=== PATIENT | male | born 2000 | race Caucasian/White ===

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

== ENCOUNTER 2020-06-27 08:19 | Inpatient (IN) | payer OTHER ==
[2020-06-27] VITALS (13 sets, daily range): BP systolic 131–152; BP diastolic 76–90; PULSE 53–70; TEMP 97.5–98.6
[~2020-06-27] VITALS: Ht 160 cm; Wt 85.5 kg
[~2020-06-27 08:19] MED LIST changes: +CEPHALEXIN500 M1 PO
--- NOTE | 2020-06-27 09:10 | NUR ---
ALERT ORIENTED X 3, VERBALIZED UNDERSTANDING AND SIGNED CONSENT.
--- NOTE | 2020-06-27 11:10 | NUR ---
Patient up from OR. Alert and oriented x 3. Girlfriend at bedside. Right foot in acewrap, CDI. States mild pain at 4/10. Cap refil <3 sec. Post op VSS. Post op fluids infusing per orders. Patient oriented to room. Assessment complete. Denies further needs at this time. Will continue to monitor.
--- NOTE | 2020-06-27 12:21 | NUR ---
First visit from the system administration manager. No needs right now.
--- NOTE | 2020-06-27 13:45 | NUR ---
Left Voicemail for about consulst.
--- NOTE | 2020-06-27 14:19 | NUR ---
Face Painter met with the patient to complete initial intake. The patient lives in [place] with his parents, Danie and Rose. The patient denies DME use and is indepenent with ADLs. The patient receives medications from [facility]. The patient stepped on a nail on his right foot and may need crutches at discharge. The patient plans to return home once able. There are no additional needs at this time.
--- NOTE | 2020-06-27 18:31 | NUR ---
Patient has done well since up from OR. Has requested pain medication for pain/burning to RLE. Medications given per orders. Tolerating diet without complications, girlfriend at bedside. Denies further needs at this time. Will report off to unemployment examiner.
--- NOTE | 2020-06-27 20:10 | NUR ---
Pt. sitting up in bed at this time. Pt. is A&OX3, assessment complete. INT to lt. forearm patent. Pt. denies pain at this time. Pt. did report feeling itchy on back, upon inspection. Pt.'s back is red and warm with rashy appearance. Pt. had just finished receiving a dose of IV Vancomycin also. Dr. Bautista and Dr. Fraser notified. [facility] vanco at this time. Pt. given benadryl to help. Dressing to rt foot CDI. Pt. denies further needs, call light within reach.
--- NOTE | 2020-06-28 06:50 | NUR ---
Patient called out to nurses station states severe pain 06/23 to RLE. Medications given per orders. Will continue to monitor.
[2020-06-28 07:20] VITALS: BP 138/84; PULSE 50; TEMP 97.8
--- NOTE | 2020-06-28 08:30 | NUR ---
Patient states relief of pain. In bed resting. Alert and oriented x 3. RLE with alysa wrap. Cap refill <3 sec. INT to right forarm. Denies further needs at this time.
[2020-06-28 09:07] LABS: BASO % 0.3 % (0.0-2.0); EOS # 0.1 (0.0-0.7); EOS % 1.8 % (0-4.0); GRAN # 4.1 (1.4-6.5); GRAN % 59.9 % (42.2-75.2); HEMATOCRIT 42.6 % (42.0-52.0); HEMOGLOBIN 14.6 g/dl (13.5-18.0); LYMPH % 29.6 % (20.0-51.0); MEAN CELL VOLUME 87 fl (80.0-100.0); MEAN CORPUSCULAR HEMOGLOBIN 30 pg (27.0-31.0); MEAN CORPUSCULAR HGB CONC 34 g/dl (33.0-37.0); MEAN PLATELET VOLUME 10.2 fl (7.4-10.4); MONO # 0.6 (0.1-0.6); MONO % 8.3 % (1.7-9.3); PLATELET COUNT 172 K/mm3 (130-400); RED BLOOD COUNT 4.91 M/mm3 (4.20-5.60)
[2020-06-28 09:41] LABS: BILIRUBIN,TOTAL 0.8 mg/dL (0.0-1.0); CREATININE, serum 0.89 (0.66-1.25); POTASSIUM 3.9 mmol/L (3.4-5.0); TOTAL PROTEIN 7.1 gm/dL (6.4-8.2)
--- NOTE | 2020-06-28 10:56 | NUR ---
The patient is hospitalized on worker's compensation as his payer source. The patient will likely be needing IV antibiotics at discharge. CHARLIE contacted the worker's compensation company #[phone] to discuss options and how to proceed for the patient. CHARLIE left message for Keshia. Will continue to monitor.
--- NOTE | 2020-06-28 11:05 | NUR ---
The patient may be needing IV antibiotics. Telecom Coordinator met with the patient to discuss options for IV antibiotics if needed. The patient states his girlfriend is a [employer] PROF[employer] and would be able to assist with admistration and if there is a dressing change need. SW staffed with the patient's nurse regarding the above. Nurse is awaiting physicians recommendations. Will continue to monitor.
[2020-06-28 11:10] VITALS: BP 131/70; PULSE 54; TEMP 97.8
--- NOTE | 2020-06-28 11:50 | NUR ---
Left message for Dr. Temple if patient will need picc line for antibiotics.
--- NOTE | 2020-06-28 12:57 | NUR ---
Patient called out to nurses station states pain 05/23. Sudden onset, Medications given per orders.
--- NOTE | 2020-06-28 13:24 | NUR ---
Baylee contacted CHARLIE. She states it could take 24-48 hours to find a vendor. She will contact the local printing supplies sales representative for [employer] to find out which companies are contracted. CHARLIE staffed with the patient's nurse. There will be a picc line placed this day.
--- NOTE | 2020-06-28 15:13 | NUR ---
CHARLIE contacted Max from [facility] regarding the patient's antibiotics. He reports that [facility] will be providing them. Sarah from [facility] contacted this SW. She reports they will be able to deliver the antibiotic by 10:00 am 06/29. She will contact the patient with this information. The patient will be needing weekly labs and PICC dressing changes. These appointments will be set up at [facility]. The patient is to have weekly labs and PICC dressing changes on Mondays at 0900. CHARLIE met with the patient to review the discharge. The patient was agreeable to all of the above. The patient's girlfriend will be his support but will need some education. Baylee from the RN CM from [facility], that they will approve home health services for a couple of visits. [facility] Baylee to have Max contact CHARLIE with final decision. Will continue to monitor.
[2020-06-28] MEDS ORDERED: MOBIC15 MG PO (15:14)
[2020-06-28] MEDS ORDERED: PERCOCET 325 MG1 TA2 PO (15:14)
[2020-06-28] MEDS ORDERED: COLACE 100100 MG/CAP PO (15:17)
[2020-06-28] MEDS ORDERED: ZOFRAN 4MG T4 MG/TAB PO (15:17)
[2020-06-28] MEDS ORDERED: CUBICIN 500MG500 MG IV (15:19)
[2020-06-28] MEDS ORDERED: MAXIPIME2 GM IV (15:20)
[2020-06-28 15:56] VITALS: BP 140/72; PULSE 61; TEMP 97.3
--- NOTE | 2020-06-28 16:03 | NUR ---
Max with [facility] reports they will contract with [facility]. CHARLIE faxed referral and discharge orders to [facility]. CHARLIE contacted [facility] with [facility]. They are reviewing the information that Max sent and should be able to accommodate the patient for services. CHARLIE met with the patient and his girlfriend, Will to discuss the patient's care. They are both comfortable doing this at home. They will have [facility] have provide training. Will continue to follow.
--- NOTE | 2020-06-28 16:30 | NUR ---
Discharge education provided to patient. Educated on all new medications and medication safety. Patient and girlfriend educated on follow up appointements and when to call provider. Girlfriend educated on picc line care and medicaiton administration. Girlfriend (Will) educated on sterile technique. Will demonstrated back teaching on administration and was able to set up administration for afternoon dose of antibiotic. Patient verbalizes back teaching. All questions answered. Patient will have home health available to help with additional picc line care. Patient is to have dressing changes at express unit along with weekly labs.
--- NOTE | 2020-06-28 16:34 | NUR ---
The patient is to discharge today, 06/28 with [facility] nursing services approved by [facility]. The patient's antibiotics will be delivered 06/29 at 1000 to his home. The patient to have labs and PICC dressing changes on Mondays through [facility]. RN faxed information to Express. CHARLIE was notified by the patient's nurse that the patient's mother had concerns about the patient receiving antibiotics at home. CHARLIE met with the patient and his girlfriend, Will to revisit the discharge plan. They feel comfortable with the above plan and do not have any other questions or concerns for SW. There are no additional needs at this time.
--- NOTE | 2020-06-28 18:40 | NUR ---
Patients mother called, upset states that she does not want patient to perform medication administration at home. States she will not allow this to happen. Reassured mother that patient and girlfriend will be educated on how to perform mediation administration through picc line. Mother upset states she will call Dr. Bello because patient unable to perform medication administration.
--- NOTE | 2020-06-28 19:49 | NUR ---
Pt. antibiotics complete at this time. Discharge paperwork reviewed with SARA Savage. Pt. PICC line wrapped with alysa and escorted out.
--- NOTE | 2020-06-29 09:54 | NUR ---
Ink Jet Operator was notified regarding home health not able to provide HHS for the patient. CHARLIE contacted the patient and he was agreeable to setting up his IV antibiotics at [facility]. CHARLIE contacted Baylee with [facility] and she was agreeable to doing this at [facility]. CHARLIE contact Darlene at [facility]. She would like the patient this day 11:30 am and come in through admissions entrance. They will set a schedule with the patient on this visit. CHARLIE faxed information to Darlene. CHARLIE contacted the patient regarding the above information. He was in agreeance. There are no additional needs at this time.
== END 2020-06-28 19:51 | disposition home or self-care (01) | DRG 988 ==
LOC: SDCO 08:19 → SURG 08:19 → SDCO 11:12 → SURG 11:12 → SDCO 11:13 → SURG 11:13 → SDCO 12:44 → SURG 12:44 → EDSTATUS 12:45 → SDCO 12:45 → SURG 06-28 19:51
PROVIDERS: Internal Medicine Infectious Disease; ADMIT Orthopaedic Surgery Sports Medicine
PROC: 0S9M0ZZ Drainage of Right Metatarsal-Phalangeal Joint, Open Approach (ICD-10-PCS; principal; 2020-06-27 12:45)
PROC: 02HV33Z Insertion of Infusion Device into Superior Vena Cava, Percutaneous Approach (ICD-10-PCS; 2020-06-28)
DX: L03.115 Cellulitis of right lower limb (principal); M00.9 Pyogenic arthritis, unspecified; Z20.828 Contact with and (suspected) exposure to other viral communicable diseases; F17.210 Nicotine dependence, cigarettes, uncomplicated
CPT/HCPCS: OP; C1751; C1892; J0690; J0692; J0878; J1170; J2250; J2704; J3010; J3370; J7050; J7120

== ENCOUNTER 2020-07-09 18:08 | Outpatient (RCR) | payer OTHER ==
[2020-06-29 11:47] VITALS: BP 133/79; PULSE 93; TEMP 98
--- NOTE | 2020-06-29 12:10 | NUR ---
patient in the express unit. PICC intact right upper arm. No signs or symptoms of IV complications noted. Patient reported funny fluttery feeling in chest during the night. Points to mid chest region. Radial pulse with no ectopy noted. Heart rate normal. Listen to the patient. Per patient request, chest x-ray done. Tip location noted in the lower SVC. Patient questions whether he is just panicking about situation. Informed him I would do whatever he would like me to do. I can contacted physician and/or if he would like to contact his physician up would be following. He decided to wait until a.m. and monitor if funny feeling returns. Advised that he can always present to the emergency department if warranted. Patient voiced understanding. Will continue to monitor.
[2020-06-30 07:38] VITALS: BP 143/81; PULSE 75; TEMP 97.3
[2020-06-30 19:32] VITALS: BP 127/79; PULSE 78; TEMP 98.4
[2020-07-01 07:14] VITALS: BP 133/76; PULSE 59; TEMP 98.1
[2020-07-01 19:33] VITALS: BP 112/73; PULSE 96; TEMP 98.5
[2020-07-04 19:22] VITALS: BP 104/70; PULSE 87; TEMP 98.7
[2020-07-05 07:00] VITALS: BP 130/71; PULSE 71; TEMP 97.5
[2020-07-05 19:05] VITALS: BP 132/67; PULSE 82; TEMP 98.5
[2020-07-05 19:14] LABS: HEMATOCRIT 43.7 % (42.0-52.0); HEMOGLOBIN 15.1 g/dl (13.5-18.0); MEAN CELL VOLUME 85 fl (80.0-100.0); MEAN CORPUSCULAR HEMOGLOBIN 30 pg (27.0-31.0); MEAN CORPUSCULAR HGB CONC 35 g/dl (33.0-37.0); MEAN PLATELET VOLUME 9.5 fl (7.4-10.4); PLATELET COUNT 177 K/mm3 (130-400); RED BLOOD COUNT 5.12 M/mm3 (4.20-5.60); REDCELL DISTRIBUTION WIDTH-CV 11.9 % (11.5-14.5)
[2020-07-05 19:32] LABS: ALANINE AMINOTRANSFERASE 103 U/L (4-49); ALBUMIN 4.5 gm/dL (3.5-5.0); ALKALINE PHOSPHATASE 106 U/L (50-136); ANION GAP 10 mmol/L (7-16); AST,SGOT 55 U/L (15-37); BILIRUBIN,TOTAL 0.4 mg/dL (0.0-1.0); BLOOD UREA NITROGEN 9 mg/dL (9-20); C-REACTIVE PROTEIN < 0.5 mg/dL (0.0-0.9); CALCIUM 9.6 mg/dL (8.4-10.2); CARBON DIOXIDE 28 mmol/L (22-30); CHLORIDE 100 mmol/L (98-107); CREATINE KINASE 60 U/L (55-170); CREATININE, serum 0.77 (0.66-1.25); GLUCOSE 133 mg/dL (74-106); SODIUM 138 mmol/L (137-145); TOTAL PROTEIN 7.9 gm/dL (6.4-8.2)
[2020-07-05 20:12] LABS: ERYTHROCYTE SEDIMENTATION RATE 1 mm/hr (0-15)
[2020-07-06 07:20] VITALS: BP 123/73; PULSE 60; TEMP 97.5
--- NOTE | 2020-07-06 07:30 | NUR ---
Pt arrived this am for scheduled IV abx.Per pt he did not come in for abx on saturday.Per pt he had a few doses shipped to home and pt reports he took his IV abx saturday AT HOME.Instructed pt that IV abx are scheduled through the Express [facility] and pt cannot go back and forth doing home infusions then hospital infusions because there is no way to keep track of doses given.Pt verbalizes understanding.
[2020-07-06 18:40] VITALS: BP 133/69; PULSE 80; TEMP 98.5
[2020-07-07 07:37] VITALS: BP 129/71; PULSE 60; TEMP 98.1
[2020-07-07 17:57] VITALS: BP 125/75; PULSE 107; TEMP 98.7
[2020-07-08 07:10] VITALS: BP 120/75; PULSE 71; TEMP 97.7
[2020-07-08 18:07] VITALS: BP 125/72; PULSE 83; TEMP 98.4
[~2020-07-09] VITALS: Ht 160 cm; Wt 90.1 kg
[2020-07-09 08:06] VITALS: BP 116/73; PULSE 52; TEMP 97.6
[~2020-07-09 18:08] MED LIST changes: +COLACE 100100 MG/CAP PO; +CUBICIN 500MG500 MG IV; +MAXIPIME2 GM IV; +MOBIC15 MG PO; +PERCOCET 325 MG1 TA2 PO; +ZOFRAN 4MG T4 MG/TAB PO
[2020-07-10 07:31] VITALS: BP 141/72; PULSE 56; TEMP 98.1
--- NOTE | 2020-07-11 08:10 | NUR ---
here for cares. Right upper arm PICC intact. Sterile dressing change done with insertion site cleansed with ChloraPrep 1, chlorhexidine impregnated disc applied, skin prep, StatLock, and Tegaderm applied. Signs or symptoms of IV complications noted. No concerns voiced. Arm wrapped with Gordon to protect catheter. Patient to return as scheduled to the [facility] unit for cares. Patient voiced understanding of instructions.
[2020-07-11 08:27] LABS: ALBUMIN 4.6 gm/dL (3.5-5.0); BILIRUBIN,TOTAL 0.6 mg/dL (0.0-1.0); CALCIUM 9.5 mg/dL (8.4-10.2); CREATININE, serum 0.75 (0.66-1.25); POTASSIUM 4.1 mmol/L (3.4-5.0); TOTAL PROTEIN 7.9 gm/dL (6.4-8.2)
[2020-07-11 08:41] VITALS: BP 132/71; PULSE 74; TEMP 97.9
[2020-07-11 18:58] VITALS: BP 152/90; PULSE 78; TEMP 97.9
[2020-07-12 07:15] VITALS: BP 131/75; PULSE 51; TEMP 97.8
[2020-07-12 18:08] VITALS: BP 131/82; PULSE 81; TEMP 98.5
[2020-07-13 07:53] VITALS: BP 124/71; PULSE 67; TEMP 98.7
[2020-07-13 17:44] VITALS: BP 133/83; PULSE 69; TEMP 99
[2020-07-17 17:58] VITALS: BP 125/75; PULSE 80; TEMP 98.3
== END 2020-07-14 07:09 | disposition still patient (30) ==
LOC: EUO 07-10 07:16
PROVIDERS: Family Medicine; Internal Medicine Infectious Disease
DX: Z45.2 Encounter for adjustment and management of vascular access device (principal); L03.119 Cellulitis of unspecified part of limb; M86.9 Osteomyelitis, unspecified; M00.9 Pyogenic arthritis, unspecified; T14.8XXA Other injury of unspecified body region, initial encounter; Z79.2 Long term (current) use of antibiotics
CPT/HCPCS: J0692; J0878

== ENCOUNTER 2020-07-16 18:07 | Outpatient (RCR) | payer OTHER ==
[~2020-07-16] VITALS: Ht 160 cm; Wt 89.5 kg
[2020-07-17 17:58] VITALS: BP 127/75; PULSE 80; TEMP 98.3
== END 2020-07-18 07:44 | disposition home health service (06) ==
LOC: EUO 07-17 17:44
DX: M86.9 Osteomyelitis, unspecified (principal); L03.119 Cellulitis of unspecified part of limb; T14.8XXA Other injury of unspecified body region, initial encounter; M00.9 Pyogenic arthritis, unspecified
CPT/HCPCS: J0692

== ENCOUNTER 2020-08-09 09:00 | Outpatient (RCR) | payer OTHER ==
[2020-07-14 07:40] VITALS: BP 124/73; PULSE 78; TEMP 98.6
[2020-07-14 17:50] VITALS: BP 143/84; PULSE 93; TEMP 98.6
[2020-07-15 07:45] VITALS: BP 133/73; PULSE 77; TEMP 98.6
[2020-07-15 18:19] VITALS: BP 146/90; PULSE 95; TEMP 98.5
[2020-07-16 07:59] VITALS: BP 129/81; PULSE 75; TEMP 98.4
--- NOTE | 2020-07-17 09:01 | NUR ---
Pt did not show for his antibiotics this am. I have called his phone and left 3 messages, the last of which advised him to go to ER for morning doses today. I also contacted his father Danie Costello, who is listed as person to notify, and advised him of the plan for Chance to receive his morning and evening doses of antibiotics in the ER. I spoke to ER charge who is okay with this plan/
[2020-07-18 08:00] VITALS: BP 135/81; PULSE 56; TEMP 98
[2020-07-18 08:11] LABS: HEMATOCRIT 42.4 % (42.0-52.0); HEMOGLOBIN 14.6 g/dl (13.5-18.0); MEAN CELL VOLUME 86 fl (80.0-100.0); MEAN CORPUSCULAR HEMOGLOBIN 29 pg (27.0-31.0); MEAN CORPUSCULAR HGB CONC 34 g/dl (33.0-37.0); MEAN PLATELET VOLUME 10.9 fl (7.4-10.4); PLATELET COUNT 146 K/mm3 (130-400); RED BLOOD COUNT 4.96 M/mm3 (4.20-5.60); REDCELL DISTRIBUTION WIDTH-CV 12.1 % (11.5-14.5)
[2020-07-18 08:37] LABS: ERYTHROCYTE SEDIMENTATION RATE 1 mm/hr (0-15)
[2020-07-18 08:44] LABS: ALANINE AMINOTRANSFERASE 114 U/L (4-49); ALBUMIN 4.3 gm/dL (3.5-5.0); ALKALINE PHOSPHATASE 110 U/L (50-136); ANION GAP 10 mmol/L (7-16); AST,SGOT 55 U/L (15-37); BLOOD UREA NITROGEN 8 mg/dL (9-20); CALCIUM 9.1 mg/dL (8.4-10.2); CARBON DIOXIDE 26 mmol/L (22-30); CHLORIDE 104 mmol/L (98-107); CREATINE KINASE 61 U/L (55-170); CREATININE, serum 0.67 (0.66-1.25); GLUCOSE 106 mg/dL (74-106); POTASSIUM 4.1 mmol/L (3.4-5.0); SODIUM 140 mmol/L (137-145); TOTAL PROTEIN 7.3 gm/dL (6.4-8.2)
[2020-07-18 09:01] LABS: C-REACTIVE PROTEIN < 0.5 mg/dL (0.0-0.9)
[2020-07-18 09:10] LABS: BILIRUBIN UNCONJUGATED 0.2 mg/dL (0.0-1.1); BILIRUBIN,DIRECT 0.1 mg/dL (0.0-0.4); BILIRUBIN,TOTAL 0.3 mg/dL (0.0-1.0)
[2020-07-18 18:28] VITALS: BP 139/92; PULSE 66; TEMP 98.5
--- NOTE | 2020-07-19 08:00 | NUR ---
PICC intact right upper arm with sterile dressing change done with insertion site cleansed with chloraprep x 1, chlorhexidine impregnated disk applied, skin prep, stat lock, and tegaderm applied. no signs or symptoms of IV complications noted. no concerns voiced. re-wrapped with alysa to protect catheter. to continue with cares in EU. voiced understanding of instructions.
[2020-07-19 08:16] VITALS: BP 139/92; PULSE 73; TEMP 98.4
[2020-07-19 18:10] VITALS: BP 113/81; PULSE 92; TEMP 98.8
[2020-07-20 07:35] VITALS: BP 128/78; PULSE 70; TEMP 97.7
[2020-07-20 18:06] VITALS: BP 129/85; PULSE 82; TEMP 98.1
[2020-07-21 07:35] VITALS: BP 144/82; PULSE 72; TEMP 98.6
[2020-07-22 07:27] VITALS: BP 121/920; PULSE 74; TEMP 97.6
[2020-07-23 07:39] VITALS: BP 139/92; PULSE 98; TEMP 97.6
[2020-07-24 07:49] VITALS: BP 138/86; PULSE 69; TEMP 97.2
[2020-07-25 07:38] VITALS: BP 142/81; PULSE 56; TEMP 98.4
[2020-07-26 08:20] VITALS: BP 129/81; PULSE 50; TEMP 98.2
[2020-07-26 08:39] LABS: HEMATOCRIT 40.4 % (42.0-52.0); HEMOGLOBIN 14.3 g/dl (13.5-18.0); MEAN CELL VOLUME 84 fl (80.0-100.0); MEAN CORPUSCULAR HEMOGLOBIN 30 pg (27.0-31.0); MEAN CORPUSCULAR HGB CONC 35 g/dl (33.0-37.0); MEAN PLATELET VOLUME 9.6 fl (7.4-10.4); PLATELET COUNT 193 K/mm3 (130-400); RED BLOOD COUNT 4.82 M/mm3 (4.20-5.60); REDCELL DISTRIBUTION WIDTH-CV 12.2 % (11.5-14.5)
--- NOTE | 2020-07-26 08:45 | NUR ---
PICC intact right upper arm. Insertion site cleansed with ChloraPrep 1, chlorhexidine impregnated disc applied, skin prep, StatLock, and Tegaderm applied. No signs or symptoms of IV complications noted. No concerns voiced. Arm wrapped with Gordon to protect catheter. Patient to continue with cares in the express unit. Patient voiced understanding of instructions.
[2020-07-26 08:59] LABS: ALANINE AMINOTRANSFERASE 59 U/L (4-49); ALBUMIN 4.1 gm/dL (3.5-5.0); ALKALINE PHOSPHATASE 97 U/L (50-136); ANION GAP 8 mmol/L (7-16); AST,SGOT 30 U/L (15-37); BILIRUBIN,TOTAL 0.4 mg/dL (0.0-1.0); BLOOD UREA NITROGEN 6 mg/dL (9-20); CALCIUM 8.9 mg/dL (8.4-10.2); CARBON DIOXIDE 27 mmol/L (22-30); CHLORIDE 105 mmol/L (98-107); CREATINE KINASE 54 U/L (55-170); CREATININE, serum 0.71 (0.66-1.25); GLUCOSE 105 mg/dL (74-106); POTASSIUM 4.1 mmol/L (3.4-5.0); SODIUM 140 mmol/L (137-145); TOTAL PROTEIN 7.1 gm/dL (6.4-8.2)
[2020-07-26 09:04] LABS: C-REACTIVE PROTEIN < 0.5 mg/dL (0.0-0.9)
[2020-07-26 09:24] LABS: ERYTHROCYTE SEDIMENTATION RATE 2 mm/hr (0-15)
[2020-07-28 07:30] VITALS: BP 132/82; PULSE 61; TEMP 98.2
[2020-07-29 09:20] VITALS: BP 133/87; PULSE 98; TEMP 98.1
[2020-07-30 09:34] VITALS: BP 143/83; PULSE 70; TEMP 98.3
[2020-07-31 09:52] VITALS: BP 124/78; PULSE 63; TEMP 98
--- NOTE | 2020-08-01 11:17 | NUR ---
2 messages left on pt's personal phone this morning, and one message left on his mother's phone. Pt was scheduled for 0800 IV antibiotic infusion and blood draw, but has not arrived for appt or contacted staff. Will continue to attempt to reach pt.
--- NOTE | 2020-08-01 15:58 | NUR ---
Contact made with pt at this time. He is asked to come in as soon as possible for IV antibiotic dose and blood work. He states he will finish up what he is doing and come in. Pharmacy notified, as they had had to throw away this morning's dose of daptomycin due to med expiring.
[2020-08-01 16:27] VITALS: BP 136/81; PULSE 64; TEMP 98.6
[2020-08-01 16:37] LABS: HEMATOCRIT 44.5 % (42.0-52.0); HEMOGLOBIN 15.4 g/dl (13.5-18.0); MEAN CELL VOLUME 84 fl (80.0-100.0); MEAN CORPUSCULAR HEMOGLOBIN 29 pg (27.0-31.0); MEAN CORPUSCULAR HGB CONC 35 g/dl (33.0-37.0); MEAN PLATELET VOLUME 9.7 fl (7.4-10.4); PLATELET COUNT 212 K/mm3 (130-400); RED BLOOD COUNT 5.27 M/mm3 (4.20-5.60); REDCELL DISTRIBUTION WIDTH-CV 12.6 % (11.5-14.5)
[2020-08-01 16:46] LABS: ALANINE AMINOTRANSFERASE 79 U/L (4-49); ALBUMIN 4.5 gm/dL (3.5-5.0); ALKALINE PHOSPHATASE 103 U/L (50-136); ANION GAP 8 mmol/L (7-16); AST,SGOT 43 U/L (15-37); BILIRUBIN,TOTAL 0.4 mg/dL (0.0-1.0); BLOOD UREA NITROGEN 4 mg/dL (9-20); CALCIUM 9.3 mg/dL (8.4-10.2); CARBON DIOXIDE 28 mmol/L (22-30); CHLORIDE 102 mmol/L (98-107); CREATINE KINASE 73 U/L (55-170); CREATININE, serum 0.86 (0.66-1.25); GLUCOSE 101 mg/dL (74-106); POTASSIUM 4.1 mmol/L (3.4-5.0); SODIUM 138 mmol/L (137-145); TOTAL PROTEIN 7.6 gm/dL (6.4-8.2)
[2020-08-01 16:49] LABS: C-REACTIVE PROTEIN < 0.5 mg/dL (0.0-0.9)
[2020-08-01 17:01] LABS: ERYTHROCYTE SEDIMENTATION RATE 1 mm/hr (0-15)
[2020-08-02 09:58] VITALS: BP 127/71; PULSE 67; TEMP 98.2
--- NOTE | 2020-08-02 10:10 | NUR ---
here for cares. PICC intact right upper arm. Sterile dressing change jassi with insertion site cleansed with ChloraPrep 1, chlorhexidine impregnated disc applied, skin prep, StatLock, and Tegaderm applied. No signs or symptoms of IV complications noted. No concerns voiced. Patient to continue with IV antibiotic and PICC cares in the express unit. Voiced understanding of instructions.
[2020-08-03 13:25] VITALS: BP 135/73; PULSE 57; TEMP 98
[2020-08-04 09:43] VITALS: BP 134/79; PULSE 59; TEMP 97.7
[2020-08-05 10:59] VITALS: BP 128/84; PULSE 69; TEMP 98.1
[2020-08-06 09:54] VITALS: BP 130/78; PULSE 64; TEMP 97.5
[2020-08-07 09:29] VITALS: BP 144/82; PULSE 65; TEMP 98.1
[2020-08-08 11:10] LABS: BASO % 0.7 % (0.0-2.0); EOS # 0.2 (0.0-0.7); EOS % 3.1 % (0-4.0); GRAN # 2.7 (1.4-6.5); GRAN % 46.5 % (42.2-75.2); HEMATOCRIT 45.6 % (42.0-52.0); HEMOGLOBIN 15.7 g/dl (13.5-18.0); LYMPH # 2.3 (1.2-3.4); LYMPH % 40.5 % (20.0-51.0); MEAN CELL VOLUME 86 fl (80.0-100.0); MEAN CORPUSCULAR HEMOGLOBIN 30 pg (27.0-31.0); MEAN CORPUSCULAR HGB CONC 34 g/dl (33.0-37.0); MEAN PLATELET VOLUME 9.9 fl (7.4-10.4); MONO # 0.5 (0.1-0.6); MONO % 9.2 % (1.7-9.3); PLATELET COUNT 200 K/mm3 (130-400); RED BLOOD COUNT 5.33 M/mm3 (4.20-5.60); REDCELL DISTRIBUTION WIDTH-CV 12.6 % (11.5-14.5)
[2020-08-08 11:20] VITALS: BP 117/75; PULSE 58; TEMP 98.1
[2020-08-08 11:22] LABS: ALANINE AMINOTRANSFERASE 145 U/L (4-49); ALBUMIN 4.5 gm/dL (3.5-5.0); ALKALINE PHOSPHATASE 102 U/L (50-136); ANION GAP 9 mmol/L (7-16); AST,SGOT 67 U/L (15-37); BILIRUBIN,TOTAL 0.6 mg/dL (0.0-1.0); BLOOD UREA NITROGEN 16 mg/dL (9-20); CALCIUM 9.2 mg/dL (8.4-10.2); CARBON DIOXIDE 26 mmol/L (22-30); CHLORIDE 103 mmol/L (98-107); CREATINE KINASE 89 U/L (55-170); CREATININE, serum 0.93 (0.66-1.25); GLUCOSE 98 mg/dL (74-106); POTASSIUM 4.1 mmol/L (3.4-5.0); SODIUM 138 mmol/L (137-145); TOTAL PROTEIN 7.9 gm/dL (6.4-8.2)
[2020-08-08 11:23] LABS: C-REACTIVE PROTEIN < 0.5 mg/dL (0.0-0.9)
[2020-08-08 11:42] LABS: ERYTHROCYTE SEDIMENTATION RATE 1 mm/hr (0-15)
[~2020-08-09] VITALS: Ht 160 cm; Wt 94.6 kg
[2020-08-09 10:51] VITALS: BP 126/86; PULSE 61; TEMP 97.8
--- NOTE | 2020-08-09 12:27 | NUR ---
Pt discharged via ambulatory.
== END 2020-08-09 12:27 | disposition home or self-care (01) ==
LOC: EUO 09:00
PROVIDERS: Family Medicine; Internal Medicine Infectious Disease
DX: T14.8XXA Other injury of unspecified body region, initial encounter (principal); L03.119 Cellulitis of unspecified part of limb; M86.9 Osteomyelitis, unspecified; M00.9 Pyogenic arthritis, unspecified
CPT/HCPCS: J0692; J0878

== ENCOUNTER → 2022-11-22 | Outpatient (CLI) | payer BC | LOC: COL.RAD 09:23 | DX: N50.812 Left testicular pain (principal) ==